=== PATIENT | female | born 1935 | race Caucasian/White ===

== ENCOUNTER 2022-07-17 09:55 | Outpatient (CLI) | payer MEDICARE, OTHER, SELFPAY ==
--- NOTE | ~2022-07-17 | CT_ITS ---
CT Angiogram of the Abdomen with contrast. History: Hypertension, renal artery stenosis. Spiral CT of the abdomen was performed after the administration of intravenous contrast. 100 cc of Om nipaque 350 was administered intravenously without complication. 3-D reconstructed images were perfor med by the technologist on the workstation. Dose reduction technique was used on this scan by [employer] automated exposure control and iterative reconstruction technique. The dose-length product (DLP) w as 148.43 mGy-cm. COMPARISON: 03/28/2018 Findings: Scans through the lung bases demonstrate mild atelectatic change. The liver, spleen, pancreas, gallbladder, adrenals and kidneys are within normal limits. No lymphaden opathy is seen. Visualized abdominal aorta is unremarkable, with minimal calcified plaques distally. Celiac axis, SMA , and bilateral renal arteries are widely patent, without evidence of plaque or stenosis, or occlusio n. KE origin also appears widely patent. Visualized bowel loops are unremarkable. No ascites. Impression: No evidence for renal artery stenosis. No significant vascular abnormality evident. Reviewed, dictated and finalized at location . [facility] [employer] Impression: No evidence for renal artery stenosis. No significant vascular abnormality evid ent.
[2022-07-17 10:14] LABS: Estimated Glomerular Filt Rate 59
== END 2022-07-17 09:56 | disposition home or self-care (01) ==
PROVIDERS: PCP Family Medicine Adolescent Medicine; Visit Provider Family Medicine Adolescent Medicine
DX: I10 Essential (primary) hypertension (principal)
CPT/HCPCS: 74175; Q9967

== ENCOUNTER 2022-12-07 11:15 | Outpatient (CLI) | payer MEDICARE, OTHER, SELFPAY ==
[2022-12-07 12:00] LABS: Hematocrit 28.9 % (37.0-47.0); Hemoglobin 9.4 g/dL (12.0-15.0); Mean Corpuscular HGB Conc 32.5 g/dl (32-36); Mean Corpuscular Hemoglobin 30.3 pg (26-34); Mean Corpuscular Volume 93.2 fl (80-100); Mean Platelet Volume 9.6 fl (7.4-10.4); Platelet Count Result 242 k/mm3 (150-375); Red Cell Distribution Width 14.4 % (11.5-14.5); White Blood Count 8.1 K/mm3 (4.5-10.0)
== END 2022-12-07 11:16 | disposition home or self-care (01) ==
LOC: ANHLAB 11:17
PROVIDERS: PCP Family Medicine Adolescent Medicine; Visit Provider Family Medicine Adolescent Medicine
DX: D64.9 Anemia, unspecified (principal); K92.1 Melena
CPT/HCPCS: 36415; 85027

== ENCOUNTER 2024-01-14 09:14 | Outpatient (CLI) | payer MEDICARE, OTHER, SELFPAY ==
--- NOTE | ~2024-01-14 | CT_ITS ---
Non-contrast Head CT History: Headache Technique: Axial non-contrast imaging of the brain was performed. Dose reduction technique was used on this scan by utilizing automated exposure control and iterative reconstruction technique. The dose -length product (DLP) was 599.57 mGy-cm. Findings: There is no evidence of intracranial hemorrhage, mass lesion, or acute infarct. Brain par enchyma appears normal. The ventricles and subarachnoid spaces are normal in size. The calvarium ap pears normal. The visualized paranasal sinuses and mastoid air cells are clear. Impression: No significant abnormality seen. Reviewed, dictated and finalized at location . Impression: No significant abnormality seen.
== END 2024-01-14 09:15 ==
LOC: MICIMG 09:16
PROVIDERS: PCP Family Medicine Adolescent Medicine; Visit Provider Family Medicine Adolescent Medicine
DX: R51.9 Headache, unspecified (principal)
CPT/HCPCS: 70450